=== PATIENT | male | born 1985 | race African-American/Black ===

== ENCOUNTER 2017-04-27 02:50 | Emergency (ER) | payer OTHER ==
[~2017-04-27] VITALS: Ht 177.8 cm; Wt 124.4 kg
[~2017-04-27 02:50] MED LIST: FLOMAX0.4 MG PO; FLONASE16 G1 BOTH NARES; MUCUS RELIEF600 M1 PO; NAPROSYN500 MG PO; NAPROXEN500 MG PO; PERCOCET 5/31 TABLET PO; ROBITUSSIN NIG118 ML PO
[2017-04-27] MEDS ORDERED: KEFLEX500 MG PO (03:41)
[2017-04-27 03:59] VITALS: BP 127/91
== END 2017-04-27 03:59 | disposition home or self-care (01) ==
LOC: EME 02:50 → EXP 02:50
DX: L02.612 Cutaneous abscess of left foot (principal); W57.XXXA Bitten or stung by nonvenomous insect and other nonvenomous arthropods, initial encounter; F17.200 Nicotine dependence, unspecified, uncomplicated
CPT/HCPCS: 99281; 99283